=== PATIENT | female | born 2005 | race Caucasian/White ===

== ENCOUNTER 2025-11-03 06:36 | Emergency (ER) | payer SELFPAY ==
[2025-11-03 07:03] LABS: Specific Gravity, Urine 1.020 (1.005-1.030)
[2025-11-03 07:07] LABS: Glucose, Urine (Dipstick) Unable to Interpret mg/dL (Negative); Leukocyte Unable to Interpret (Negative); Protein, Urine (Dipstick) Unable to Interpret mg/dL (Neg-Trace)
[2025-11-03 07:08] LABS: Bacteria/HPF 1+ HPF (None Seen); CAUTI Indications for Culture Pregnancy; RBC/HPF Greater than 50 HPF (0-3)
[2025-11-03 07:10] LABS: Urine Culture Reflex Yes Yes
== END 2025-11-03 07:18 | disposition home or self-care (01) ==
LOC: NAV ERS 06:36
DX: O26.851 Spotting complicating pregnancy, first trimester (principal); Z3A.01 Less than 8 weeks gestation of pregnancy
CPT/HCPCS: 81001; 87086; 99284